=== PATIENT | male | born 1955 | race Caucasian/White ===

== ENCOUNTER 2016-07-19 14:54 | Emergency (ER) | payer OTHER ==
[~2016-07-19] VITALS: Ht 180.3 cm; Wt 113.4 kg
[~2016-07-19 14:54] MED LIST: ACCUNEB 0.0.63 MG/3 NEB; ALBUTEROL0.09 MG/A2 INH; ALLOPURINOL100 MG PO; ANTIBIOTIC O500 U/GM TP; APAP/HYDROCODON1 T46 PO; AVPAK AZITHROM250 M1 PO; CLEOCIN150 MG PO; HYDROCODONE BIT1 T11 PO; LISINOPRIL40 MG PO; NAPROSYN500 MG PO; PREDNISONE10 MG PO; SINGULAIR10 M1 PO; SINGULAIR10 MG PO; SUDAFED 12 HOU120 MG PO; SYMBICORT1 AE1 INH; VENTOLIN H0.09 MG/AC INH
[2016-07-19] MEDS ORDERED: FENOFIBRATE145 M1 PO (14:59)
[2016-07-19 16:02] LABS: BASO # 0.1 10*3/uL (0.0-0.1); BASO % 1.1 % (0.0-1.0); EOS # 0.5 10*3/uL (0.0-0.4); HEMOGLOBIN 15.4 g/dl (14.0-18.0); IG # 0.1 10*3/uL (0.0-0.1); LYMPH % 19.3 % (27.0-41.0); MEAN CELL VOLUME 96.6 fl (80.0-94.0); MEAN CORPUSCULAR HGB CONC 34.2 g/dl (33.0-37.0); MEAN PLATELET VOLUME 11.5 fl (9.6-12.3); MONO # 0.9 10*3/uL (0.1-1.0); NEUT # 6.6 10*3/uL (2.3-7.9); NEUT % 64.9 % (47.0-73.0); PLATELET COUNT AUTOMATED 273 10*3/uL (130-400); RED BLOOD COUNT 4.66 10*6/uL (4.50-5.90); RED CELL DISTRI WIDTH 13.7 % (0-14.5); WHITE BLOOD COUNT 10.1 10*3/uL (4.8-10.8)
[2016-07-19 16:12] LABS: PROTHROMBIN TIME 10.9 SECONDS (9.0-12.4)
[2016-07-19 16:18] LABS: ALBUMIN 3.7 gm/dl (3.1-4.5); BUN 9 mg/dl (7-24); C-REACTIVE PROTEIN 0.72 MG/DL (0-0.3); CARBON DIOXIDE 24 mmol/L (21-32); CHLORIDE 106 mmol/L (98-107); EST GLOM FILT AFRICAN AMERICAN > 60 ml/min; GLUCOSE 105 mg/dL (65-99); MAGNESIUM 1.8 mg/dL (1.5-2.1); POTASSIUM 4.5 mmol/L (3.5-5.1); SGOT/AST 16 IU/L (3-35); SGPT/ALT 23 U/L (12-78); SODIUM 137 mmol/L (136-145)
[2016-07-19 16:20] LABS: ALKALINE PHOSPHATASE 96 U/L (45-117); BILIRUBIN, TOTAL 0.3 mg/dl (0.2-1.0); CKMB 0.7 ng/ml (0.5-3.6); CPK 71 U/L (39-308); TOTAL PROTEIN 7.1 gm/dL (6.4-8.2)
[2016-07-19 16:25] LABS: TROPONIN I < 0.015 ng/ml (<0.045)
[2016-07-20] MEDS ORDERED: PERCOCET 325 MG1 TA2 PO (00:21)
== END 2016-07-20 00:15 | disposition home or self-care (01) ==
LOC: ED 14:54
PROVIDERS: Emergency Medicine
DX: M79.89 Other specified soft tissue disorders (principal); I10 Essential (primary) hypertension; J44.9 Chronic obstructive pulmonary disease, unspecified; F17.200 Nicotine dependence, unspecified, uncomplicated; Z79.899 Other long term (current) drug therapy

== ENCOUNTER → 2016-08-08 | Outpatient (CLI) | payer OTHER ==
[~2016-08-08] MED LIST changes: +FENOFIBRATE145 M1 PO; +PERCOCET 325 MG1 TA2 PO
== END | disposition home or self-care (01) ==
LOC: US 09:57
DX: M79.89 Other specified soft tissue disorders (principal); R60.0 Localized edema

== ENCOUNTER → 2016-09-04 | Outpatient (CLI) | payer OTHER | END | disposition home or self-care (01) | LOC: US 14:30 | DX: E04.1 Nontoxic single thyroid nodule (principal) ==

== ENCOUNTER → 2016-11-04 | Outpatient (CLI) | payer OTHER | END | disposition home or self-care (01) | LOC: MRI 09:00 | DX: M54.16 Radiculopathy, lumbar region (principal); I73.9 Peripheral vascular disease, unspecified; R53.1 Weakness ==

== ENCOUNTER → 2016-11-21 | Outpatient (CLI) | payer OTHER ==
[2016-11-21 14:01] LABS: THYROID STIM HORMONE (HS) 2.08 uIU/ml (0.358-4.75)
[2016-11-21 14:02] LABS: FREE T4 1.05 ng/dl (0.76-1.46)
== END | disposition home or self-care (01) ==
LOC: US 11-12 12:30 → LAB 12:26
PROVIDERS: Internal Medicine
DX: E04.1 Nontoxic single thyroid nodule (principal); M79.89 Other specified soft tissue disorders; E55.9 Vitamin D deficiency, unspecified; M79.661 Pain in right lower leg; M79.662 Pain in left lower leg

== ENCOUNTER 2018-03-03 15:09 | Emergency (ER) | payer OTHER ==
[~2018-03-03] VITALS: Ht 180.3 cm; Wt 121.1 kg
[2018-03-03] MEDS ORDERED: SEPTDS PO (15:44)
== END 2018-03-03 16:00 | disposition home or self-care (01) ==
LOC: ED 15:09
DX: L72.9 Follicular cyst of the skin and subcutaneous tissue, unspecified (principal); J44.9 Chronic obstructive pulmonary disease, unspecified; Z79.899 Other long term (current) drug therapy

== ENCOUNTER → 2018-04-16 | Outpatient (CLI) | payer OTHER ==
[~2018-04-16] MED LIST changes: +SEPTDS PO
[2018-04-16 16:02] LABS: BASO # 0.1 10*3/uL (0.0-0.1); EOS # 0.4 10*3/uL (0.0-0.4); EOS % 3.3 % (1.0-4.0); HEMATOCRIT 44.3 % (42.0-52.0); HEMOGLOBIN 14.8 g/dl (14.0-18.0); LYMPH # 2.1 10*3/uL (1.3-4.4); LYMPH % 17.8 % (27.0-41.0); MEAN CELL VOLUME 98.4 fl (80.0-94.0); MEAN CORPUSCULAR HGB 32.9 pg (27.0-31.0); MEAN CORPUSCULAR HGB CONC 33.4 g/dl (33.0-37.0); MEAN PLATELET VOLUME 11.8 fl (9.6-12.3); MONO # 0.8 10*3/uL (0.1-1.0); MONO % 7.2 % (3.0-9.0); NEUT # 8.1 10*3/uL (2.3-7.9); NEUT % 69.7 % (47.0-73.0); PLATELET COUNT AUTOMATED 268 10*3/uL (130-400); RED CELL DISTRI WIDTH 13.7 % (0-14.5); WHITE BLOOD COUNT 11.7 10*3/uL (4.8-10.8)
[2018-04-16 16:12] LABS: ALBUMIN 3.4 gm/dl (3.1-4.5); ALKALINE PHOSPHATASE 101 U/L (45-117); BUN 10 mg/dl (7-24); CHLORIDE 104 mmol/L (98-107); CREATININE 0.99 mg/dL (0.70-1.30); POTASSIUM 4.1 mmol/L (3.5-5.1); SGOT/AST 15 IU/L (3-35); SGPT/ALT 24 U/L (12-78); SODIUM 139 mmol/L (136-145); TOTAL PROTEIN 7.1 gm/dL (6.4-8.2)
[2018-04-17 09:13] LABS: PROSTATE SPECIFIC AG FREE 0.1 ng/mL; PROSTATE SPECIFIC AG, SERUM 0.3 ng/mL (0.0-4.0)
== END | disposition home or self-care (01) ==
LOC: LAB 14:51 → US 15:00
PROVIDERS: Urology
DX: D40.0 Neoplasm of uncertain behavior of prostate (principal); I10 Essential (primary) hypertension; N28.89 Other specified disorders of kidney and ureter; E11.9 Type 2 diabetes mellitus without complications

== ENCOUNTER 2020-06-06 13:22 | Inpatient (IN) | payer OTHER, MEDICAID ==
[~2020-06-06] VITALS: Ht 175.3 cm; Wt 129.9 kg
[2020-06-06 13:31] VITALS: BP 102/61
[2020-06-06 14:21] LABS: HEMATOCRIT 26.2 % (42.0-52.0); MEAN CELL VOLUME 109.2 fl (80.0-94.0); MEAN CORPUSCULAR HGB 36.3 pg (27.0-31.0); MEAN CORPUSCULAR HGB CONC 33.2 g/dl (33.0-37.0); MEAN PLATELET VOLUME 12.4 fl (9.6-12.3); PLATELET COUNT AUTOMATED 196 10*3/uL (130-400); RED CELL DISTRI WIDTH 24.4 % (0-14.5); WHITE BLOOD COUNT 17.4 10*3/uL (4.8-10.8)
[2020-06-06 14:36] VITALS: BP 112/72
[2020-06-06 14:37] LABS: ALBUMIN 1.6 gm/dl (3.1-4.5); ALKALINE PHOSPHATASE 177 U/L (45-117); BUN 43 mg/dl (7-24); CHLORIDE 104 mmol/L (98-107); CREATININE 2.48 mg/dL (0.70-1.30); LIPASE 145 U/L (73-393); POTASSIUM 4.4 mmol/L (3.5-5.1); SGOT/AST 145 IU/L (3-35); SGPT/ALT 36 U/L (12-78); SODIUM 139 mmol/L (136-145); TOTAL PROTEIN 6.2 gm/dL (6.4-8.2)
[2020-06-06 14:42] LABS: ACT PARTIAL THROMBO TIME 41.5 SECONDS (20.0-32.1); INTERNATIONAL NORM RATIO 2.2 (2.0-3.5)
[2020-06-06 14:45] LABS: BASOPHILS 1 % (0-1); TARGET CELLS FEW; TOTAL CELLS COUNTED 100 #CELLS
[2020-06-06 14:46] LABS: BURR CELLS FEW
[2020-06-06 14:47] LABS: PLATELET SUFFICIENCY NORMAL (NORMAL)
[2020-06-06 14:49] LABS: TROPONIN I < 0.015 ng/ml (<0.045)
[2020-06-06 15:32] VITALS: BP 106/80
[2020-06-06 16:47] VITALS: BP 115/62
[2020-06-06 19:30] VITALS: BP 127/74
[2020-06-06 20:42] LABS: HEMATOCRIT 25.1 % (42.0-52.0); MEAN CORPUSCULAR HGB 36.3 pg (27.0-31.0); MEAN CORPUSCULAR HGB CONC 32.3 g/dl (33.0-37.0); MEAN PLATELET VOLUME 13.2 fl (9.6-12.3); NUCLEATED RED BLOOD CELL 0.1 % (0.0-0.0); PLATELET COUNT AUTOMATED 206 10*3/uL (130-400); RED BLOOD COUNT 2.23 10*6/uL (4.50-5.90); RED CELL DISTRI WIDTH 24.8 % (0-14.5); WHITE BLOOD COUNT 17.4 10*3/uL (4.8-10.8)
[2020-06-06 20:45] LABS: MEAN CELL VOLUME 112.6 fl (80.0-94.0)
[2020-06-06 21:02] LABS: ARTERIAL BLOOD GAS PH 7.299 (7.35-7.45); ARTERIAL BLOOD GAS PO2 64.3 (80-90)
[2020-06-06 21:03] LABS: ABG BASE EXCESS -9.5 mmol/L (-2.0-2.0)
[2020-06-06 21:12] LABS: PLATELET SUFFICIENCY NORMAL (NORMAL); TOTAL CELLS COUNTED 100 #CELLS
[2020-06-06 21:13] LABS: BURR CELLS MODERATE; POLYCHROMASIA SLIGHT; TARGET CELLS MODERATE
== END 2020-06-06 21:31 | DRG 871 ==
LOC: ED 13:22 → EDHOLD 17:11 → ICCU 17:11 → EDHOLD 17:13 → ICCU 17:28
PROVIDERS: Emergency Medicine; Internal Medicine; Student in an Organized Health Care Education/Training Program; ADMIT Student in an Organized Health Care Education/Training Program; ATTEND Student in an Organized Health Care Education/Training Program
DX: A41.9 Sepsis, unspecified organism (principal); J96.01 Acute respiratory failure with hypoxia; N17.0 Acute kidney failure with tubular necrosis; E43 Unspecified severe protein-calorie malnutrition; K65.2 Spontaneous bacterial peritonitis; J44.1 Chronic obstructive pulmonary disease with (acute) exacerbation; L03.115 Cellulitis of right lower limb; L03.116 Cellulitis of left lower limb; K92.0 Hematemesis; E87.2 Acidosis; Z68.41 Body mass index [BMI] 40.0-44.9, adult; R65.20 Severe sepsis without septic shock; K70.31 Alcoholic cirrhosis of liver with ascites; E78.2 Mixed hyperlipidemia; E66.01 Morbid (severe) obesity due to excess calories; I11.0 Hypertensive heart disease with heart failure; K22.8 Other specified diseases of esophagus; F17.210 Nicotine dependence, cigarettes, uncomplicated; D53.9 Nutritional anemia, unspecified; E80.6 Other disorders of bilirubin metabolism; R74.01 Elevation of levels of liver transaminase levels; I73.9 Peripheral vascular disease, unspecified; M19.90 Unspecified osteoarthritis, unspecified site; R73.03 Prediabetes; Z66 Do not resuscitate; Z51.5 Encounter for palliative care; R73.9 Hyperglycemia, unspecified; Z91.19 Patient's noncompliance with other medical treatment and regimen; Z79.899 Other long term (current) drug therapy